=== PATIENT | male | born 1965 ===

== ENCOUNTER 2024-01-19 08:29 | Day surgery (SDC) | payer OTHER ==
[~2024-01-19] VITALS: Ht 175.3 cm; Wt 70.3 kg
[~2024-01-19 08:29] MED LIST: ATORVASTATIN CA20 MG PO; D325 MCG PO; METHOTREXATE S2.5 MG PO
[2024-01-19] MEDS ORDERED: LACTATED RINGER'S 1,000 ML IV ONE ×2 (08:47→13:14)
[2024-01-19] MEDS ORDERED: ceFAZolin Sodium 2 GM/VIAL SDV ONE (08:47)
[2024-01-19] MEDS ORDERED: SODIUM CHLORIDE 0.9% 50 ML IV ONE (08:47)
[2024-01-19] MEDS ORDERED: FAMOTIDINE 10MG/ML 2ML SDV IV ONE (08:47)
[2024-01-19] MEDS ORDERED: PERCOCET 5/321 COMBO PO (11:40)
[2024-01-19] MEDS ORDERED: ACETAMINOPHEN 100 ML IV ONE (12:09)
[2024-01-19] MEDS ORDERED: ONDANSETRON HCl 4 MG/2 ML SDV ONE (12:32)
[2024-01-19] MEDS ORDERED: LIDOcaine HCl 1% (Local Anesth.) 20 ML VIAL ONE (12:36)
[2024-01-19] MEDS ORDERED: STERILE WATER FOR IRRIGATION 1,000 ML BTL IR ONE (12:36)
[2024-01-19] MEDS ORDERED: SODIUM CHLORIDE 1,000 ML BTL IR ONE (12:36)
[2024-01-19 13:39] VITALS: BP 134/73
[2024-01-19] MEDS ORDERED: LACTATED RINGER'S 1,000 ML BAG IV ONE (14:28)
[2024-01-19] MEDS ORDERED: SUGAMMADEX SODIUM 200 MG/2 ML SDV IV ONE (14:28)
[2024-01-19] MEDS ORDERED: ePHEDrine SULFATE 50 MG/ML AMP IV ONE (14:28)
[2024-01-19] MEDS ORDERED: LIDOCAINE HCL 2% 2ML SDV IV ONE (14:28)
[2024-01-19] MEDS ORDERED: KETOROLAC TROMETHAMINE 30 MG/ML SDV IV ONE (14:28)
== END 2024-01-19 13:55 | disposition designated cancer center or children's hospital (05) | DRG 352 ==
LOC: ORM 08:29
PROVIDERS: ATTEND Surgery
PROC: 0YUA4JZ Supplement Bilateral Inguinal Region with Synthetic Substitute, Percutaneous Endoscopic Approach (ICD-10-PCS; principal; 2024-01-19)
DX: K40.20 Bilateral inguinal hernia, without obstruction or gangrene, not specified as recurrent (principal)
CPT/HCPCS: J0131; J0690